=== PATIENT | male | born 1975 | race Caucasian/White ===

== ENCOUNTER 2021-10-30 18:55 | Emergency (ER) | payer MEDICAID ==
[~2021-10-30] VITALS: Ht 170.2 cm; Wt 72.7 kg
[2021-10-30] MEDS ORDERED: PERTUSS(ACELL),DIPH,TET VAC/PF 0.5 ML SYRINGE IM. ONE (20:00)
[2021-10-30] MEDS ORDERED: HYDROCODONE/ACETAMINOPHEN 5-325 MG TABLET PO ONE (20:00)
[2021-10-30] MEDS ORDERED: SODIUM CHLORIDE 0.9% 250 ML IRRIG SOLUTION BOTTLE IRRIG ONE (20:00)
[2021-10-30] MEDS ORDERED: LIDOCAINE 1% 10 ML VIAL ID ONE (20:00)
[2021-10-30] MEDS ORDERED: POVIDONE-IODINE 10% 15 ML SOLUTION UD TP ONE (20:15)
[2021-10-30] MEDS ORDERED: BACITRACIN 0.9 GM PACKET OINTMENT TP ONE ×2 (23:24→23:30)
[2021-10-30 23:33] VITALS: BP 133/91
[2021-10-30] MEDS ORDERED: CEPH500C3 PO (23:34)
[2021-10-30] MEDS ORDERED: IBUP-2070 PO (23:34)
== END 2021-10-31 00:14 | disposition home or self-care (01) ==
LOC: EMS 19:04
DX: S61.011A Laceration without foreign body of right thumb without damage to nail, initial encounter (principal); W22.8XXA Striking against or struck by other objects, initial encounter; Y93.89 Activity, other specified; Y92.89 Other specified places as the place of occurrence of the external cause; Y99.0 Civilian activity done for income or pay
CPT/HCPCS: 12001; 73130; 90471; 90715; 96372; 99284; J0690; J3490